=== PATIENT | female | born 1965 | race Caucasian/White ===

== ENCOUNTER 2016-03-26 00:09 | Emergency (ER) | payer MEDICAID, OTHER ==
[~2016-03-26] VITALS: Ht 157.5 cm; Wt 63.5 kg
[2016-03-26 00:39] VITALS: BP 125/80
--- NOTE | 2016-03-26 00:44 | NUR ---
PT TAKEN TO BED 1
--- NOTE | 2016-03-26 00:48 | NUR ---
50/F BIB FAMILY W/C/O LEFT SIDED PAIN S/P FALL AT WORK TODAY. C/O HEADACHE. DENIES ANY N/V/D
--- NOTE | 2016-03-26 00:52 | NUR ---
Dr. Spears evaluating patient at bedside.
[2016-03-26] MEDS ORDERED: KETOROLAC 60 MG/2 ML VIAL IM ONE (00:55)
[2016-03-26 01:40] VITALS: BP 125/80
== END 2016-03-26 01:40 | disposition home or self-care (01) ==
LOC: MED 00:09
DX: S83.92XA Sprain of unspecified site of left knee, initial encounter (principal); S73.102A Unspecified sprain of left hip, initial encounter; R03.0 Elevated blood-pressure reading, without diagnosis of hypertension; W01.0XXA Fall on same level from slipping, tripping and stumbling without subsequent striking against object, initial encounter; Y93.89 Activity, other specified; Y92.89 Other specified places as the place of occurrence of the external cause; Y99.8 Other external cause status
CPT/HCPCS: 73502; 73562; 96372; 99284; J1885; Q0092

== ENCOUNTER 2023-11-05 21:46 | Emergency (ER) | payer BC, OTHER ==
[~2023-11-05] VITALS: Ht 154.9 cm; Wt 54.4 kg
[2023-11-05 22:10] VITALS: BP 116/54; PULSE 96; RESP 18; TEMP 99.9; O2SAT 99
[2023-11-06 01:40] LABS: APPEARANCE,URINE CLEAR (CLEAR); BILIRUBIN,URINE NEGATIVE (NEGATIVE); BLOOD, URINE 3+ (NEGATIVE); COLOR,URINE YELLOW (YELLOW); LEUKOCYTE ESTERASE ,URINE 1+ (NEGATIVE); NITRITE, URINE NEGATIVE (NEGATIVE); PROTEIN,URINE NEGATIVE (NEGATIVE); UGLUCOSE NEGATIVE (NEGATIVE); UROBILINOGEN,URINE 0.2 EU/dL (0.2 - 1)
[2023-11-06 01:44] LABS: BACTERIA,URINE >30 (MANY) /HPF (None Seen); MUCUS,URINE 1+ /LPF (None Seen); SQUAMOUS EPITHELIAL CELL,UR 0-3 (FEW) /LPF (0-3 (FEW)); WBC,URINE >25 (MANY) /HPF (0-5)
[2023-11-06] MEDS ORDERED: cefTRIAXone 1,000 MG VIAL ONE (01:46)
[2023-11-06] MEDS ORDERED: LIDOCAINE MPF 1% 5 ML ONE (01:47)
[2023-11-06] MEDS: cefTRIAXone 1,000 MG in LIDOCAINE MPF 1% 2.1 ML IM ONE (01:52)
[2023-11-06] MEDS ORDERED: NITR100C7 PO (02:27)
== END 2023-11-06 02:30 | disposition home or self-care (01) ==
LOC: MED 21:46
DX: N39.0 Urinary tract infection, site not specified (principal); Z79.899 Other long term (current) drug therapy
CPT/HCPCS: 81001; 87086; 96372; 99283; J0696; J2001